=== PATIENT | female | born 1985 | race Caucasian/White ===

== ENCOUNTER 2018-08-19 13:57 | Outpatient (CLI) | payer OTHER, BC ==
[~2018-08-19] VITALS: Ht 162.6 cm; Wt 88.9 kg
--- NOTE | 2018-08-19 13:57 | NUR ---
CHRISTOPHER MOSELEY presented to unit via w/c, accompanied by son, with c/o falling @ [facility]. Pt. weighed, gowned, voided, and to bed. EFHM and TOCO applied, VS taken. Pt. oriented to bed controls, call light, TV, heat, and A/C controls.
[2018-08-19 14:00] VITALS: BP 158/93
[2018-08-19 14:10] VITALS: BP 137/69
--- NOTE | 2018-08-19 14:26 | NUR ---
was called r/t pt's admission. in room with pt at clinic. message left with office staff.
--- NOTE | 2018-08-19 15:01 | NUR ---
returned phone call. monitor x30 mins, then may dismiss to home if no ctx's.
--- NOTE | 2018-08-19 15:40 | NUR ---
dismissal instructions given, verbalizes understanding. signature page singed, placed on chart.
--- NOTE | 2018-08-19 15:45 | NUR ---
pt dismissed to private vehicle via w/c with son @ side. pt stable with no sx's of distress noted.
--- NOTE | 2018-08-21 00:03 | Physician Query-Final Dx ---
ARTI ELENA 08/21/18 0003: Clinic Account Progress/Dx Physician Query: Please give diagnosis Date of Service Aug 19, 2018 at 13:57 AMENA LYNCH MD 08/21/18 0825: Clinic Account Progress/Dx DIAGNOSIS: Diagnosis Decreased movement after Patient fell - estimated gestational age is 26 weeks ARTI ELENA Aug 21, 2018 00:03 AMENA LYNCH MD Aug 21, 2018 08:25
== END 2018-08-19 15:45 | disposition home or self-care (01) ==
LOC: WSo 13:57 → LDRP 14:28 → WSo 15:45
PROVIDERS: ATTEND Obstetrics & Gynecology
DX: O36.8120 Decreased fetal movements, second trimester, not applicable or unspecified (principal); Z3A.26 26 weeks gestation of pregnancy; W19.XXXA Unspecified fall, initial encounter
CPT/HCPCS: 99212

== ENCOUNTER → 2018-08-19 | Outpatient (CLI) | payer BC ==
[~2018-08-19] MED LIST: HYDR1TAB75 PO; IBP800T PO; PREN1TAB39 PO
--- NOTE | 2018-08-19 13:23 | Diagnostic Imaging Report ---
INDICATION: Rolled right ankle with pain and swelling. TIME OF EXAM: 12:56 p.m. FINDINGS: Three views right ankle show normal alignment. Ankle mortise is well maintained. The talar dome is smooth. No fracture or dislocation is seen. There appears to be generalized soft tissue swelling. IMPRESSION: Soft tissue swelling. No acute bony abnormality is detected. Dictated by: Dictated on workstation # [id number]
== END ==
LOC: RAD 12:41
PROVIDERS: ATTEND Nurse Practitioner Family
DX: M25.472 Effusion, left ankle (principal)
CPT/HCPCS: 73610

== ENCOUNTER 2018-09-18 20:35 | Outpatient (CLI) | payer OTHER, BC ==
[~2018-09-18] VITALS: Ht 162.6 cm; Wt 87.5 kg
--- NOTE | 2018-09-18 20:44 | NUR ---
CHRISTOPHER MOSELEY presented to unit via WHEELCHAIR from ED, accompanied by FAMILY , with c/o LOWER ABD PAIN. CHRISTOPHER MOSELEY weighed, gowned, voided, and to bed. EFHM and TOCO applied, VS taken. CHRISTOPHER MOSELEY oriented to bed controls, call light, TV, heat, and A/C controls.
[2018-09-18 20:55] VITALS: BP 159/80
[2018-09-18 20:56] LABS: BILIRUBIN,URINE NEGATIVE (NEGATIVE); CLARITY,URINE VERY CLOUDY; COLOR,URINE YELLOW; GLUCOSE, URINE (UA) NEGATIVE (NEGATIVE); KETONES,URINE 2+ (NEGATIVE); LEUKOCYTE ESTERASE ,URINE 1+ (NEGATIVE); NITRITE,URINE NEGATIVE (NEGATIVE); PH,URINE 6 (5-9); PROTEIN,URINE 1+ (NEGATIVE); UROBILINOGEN,URINE 1 MG/DL (NORMAL)
[2018-09-18 21:07] LABS: BACTERIA,URINE FEW /HPF
[2018-09-18 21:09] LABS: CALCIUM OXALATE CRYSTALS,UR MODERATE /LPF
[2018-09-18] MEDS ORDERED: D5 LR IV SOLUTION 1,000 ML IV SCH (21:15)
--- NOTE | 2018-09-18 22:08 | NUR ---
pt reports pain is gone, feeling much better. Denies any further needs at this time.
--- NOTE | 2018-09-18 23:02 | NUR ---
called with update. discharge order received.
[2018-09-18 23:15] VITALS: BP 144/68
--- NOTE | 2018-09-18 23:20 | NUR ---
Discharge instructions verbalized with pt. pt verbalized understanding. pt dc'd home with s/o at side.
== END 2018-09-18 23:20 | disposition home or self-care (01) ==
LOC: WSo 20:35 → LDRP 20:36 → WSo 23:20
PROVIDERS: ATTEND Obstetrics & Gynecology
DX: O99.89 Other specified diseases and conditions complicating pregnancy, childbirth and the puerperium (principal); R10.9 Unspecified abdominal pain; Z3A.30 30 weeks gestation of pregnancy
CPT/HCPCS: 81000; 87088; 96360; 96361; 99213

== ENCOUNTER 2018-11-18 07:00 | Inpatient (IN) | payer BC ==
[~2018-11-18] VITALS: Ht 162.6 cm; Wt 86.8 kg
[2018-11-18] VITALS (39 sets, daily range): BP systolic 118–183; BP diastolic 63–95
--- NOTE | 2018-11-18 07:03 | NUR ---
CHRISTOPHER MOSELEY presented to unit via ambulation, accompanied by , for IOL. Pt. weighed, gowned, voided, and to bed. EFHM and TOCO applied, VS taken. Pt. oriented to bed controls, call light, TV, heat, and A/C controls.
[2018-11-18] MEDS ORDERED: D5 LR IV SOLUTION 1,000 ML IV ONE (07:36)
[2018-11-18] MEDS ORDERED: OXYTOCIN/NORMAL SALINE 500 ML IV ONE (07:36)
[2018-11-18] MEDS ORDERED: AMPICILLIN FOR IV USE 2,000 MG VIAL ONE (07:40)
[2018-11-18] MEDS ORDERED: WATER (STERILE) FOR INJECTION 20 ML ONE (07:40)
[2018-11-18] MEDS ORDERED: OXYTOCIN/NORMAL SALINE 500 ML IV SCH ×2 (07:50→15:36)
[2018-11-18] MEDS: D5 LR IV SOLUTION 1,000 ML IV SCH ×2 (07:55→14:55)
--- NOTE | 2018-11-18 07:55 | NUR ---
#20g IV to Rt.wrist x1 attempt by this RN. site patent, secured with opsite. D5LR @ 150cc/hr via IV pump. admission labs collected prior to IVF's infusing.
--- NOTE | 2018-11-18 07:56 | History & Physical ---
History and Physical Date Seen by Provider: Nov 18, 2018 Time Seen by Provider: 07:54 This patient is a 33-year-old G2 to P1 white female with an EDC of 9 [phone] placing her now at 39-3/7 weeks gestation. She is admitted for elective induction of labor. Her has been uncomplicated. GBS culture done on October 26, 2018 was positive patient denies rupture membranes or bleeding. Allergies are none Medications are vitamins Medical social and surgical histories are per the antepartum record HEENT exam is normal Neck is supple no lymphadenopathy no thyromegaly Abdomen is gravid soft nontender nondistended Extremities show no clubbing or cyanosis there is no Homans sign. Pelvic exam is pending Assessment and plan term at 39+ weeks gestation admitted for elective induction of labor in a patient with AMA. Anticipation is for vaginal delivery under the protection of ampicillin for GBS prophylaxis 39 week elective induction of labor Allergies and Home Medications Allergies Coded Allergies: No Known Drug Allergies (Unverified , 11/16/09) Home Medications Vits W-Ca,Fe,Fa(<1MG) 1 Each Tablet, 1 EACH PO DAILY, (Reported) Patient Home Medication List Home Medication List Reviewed: Yes AMENA LYNCH MD Nov 18, 2018 07:56
[2018-11-18] MEDS ORDERED: OXYC1TAB87 PO (08:02)
[2018-11-18] MEDS ORDERED: DOCU-143 PO (08:02)
[2018-11-18] MEDS ORDERED: IBUP-1780 PO (08:02)
--- NOTE | 2018-11-18 08:03 | Discharge Instructions ---
Discharge Instructions Discharge Medications New, Converted or Re-Newed RX: RX on Chart Patient Instructions Return to The Hospital For: As directed Activity & Diet Discharge Diet: No Restrictions Activity as Tolerated: No Orders-Post D/C & Referrals Follow Up Appt: Call to make follow up appt. for patient in 4 weeks. Activity Per routine post vaginal delivery instructions. Please call in RX to patient pharmacy. Diet as tolerated Patient may shower or tub bathe as desired. AMENA LYNCH MD Nov 18, 2018 08:03
[2018-11-18 08:25] LABS: BASOPHILS % (AUTO) 0 % (0-10); EOSINOPHILS # (AUTO) 0.1 10^3/uL (0.0-0.3); EOSINOPHILS % (AUTO) 1 % (0-10); HEMATOCRIT 33 % (35-52); HEMOGLOBIN 11.3 G/DL (11.5-16.0); LYMPHOCYTES # (AUTO) 1.6 X 10^3 (1.0-4.0); LYMPHOCYTES % (AUTO) 21 % (12-44); MEAN CORPUSCULAR HEMOGLOBIN 30 PG (25-34); MEAN CORPUSCULAR HGB CONC 35 G/DL (32-36); MEAN CORPUSCULAR VOLUME 88 FL (80-99); MEAN PLATELET VOLUME 10.4 FL (7.4-10.4); MONOCYTES # (AUTO) 0.8 X 10^3 (0.0-1.0); MONOCYTES % (AUTO) 11 % (0-12); NEUTROPHILS # (AUTO) 4.9 X 10^3 (1.8-7.8); NEUTROPHILS % (AUTO) 66 % (42-75); PLATELET COUNT 200 10^3/uL (130-400); RED CELL DISTRIBUTION WIDTH 13.6 % (10.0-14.5); WHITE BLOOD COUNT 7.4 10^3/uL (4.3-11.0)
--- NOTE | 2018-11-18 09:01 | NUR ---
ORION Da Silva here for epidural placement. Procedure explained, consent reviewed and signed by anesthesia. Questions answered to patient's satisfaction. Time out taken to verify correct patient/procedure. 0940- Patient up to side of bed, assisted into sitting position. Betadine prep done x3 and sterile drape applied. 0947-Local done, see anesthesia record. Test dose given, see anesthesia record for drug and dosage. Epidural catheter secured in place. Epidural placement complete. 0956-Assisted back into bed, monitors adjusted. Epidural dosed, see anesthesia record. Epidural of Sufenta/Bupvicaine @12cc/hr stated per pump. Patient tolerated procedure well.
[2018-11-18] MEDS ORDERED: SUFENTA 0.6MCG/ML BUPIVA 0.125 100 ML ONE (09:32)
[2018-11-18] MEDS ORDERED: LIDOCAINE PF 2% 5 ML (XYLOCAINE) VIAL ONE (09:39)
[2018-11-18] MEDS ORDERED: BUPIVACAINE 0.25% 30 ML (SENSORCAINE) VIAL ONE (09:39)
[2018-11-18] MEDS ORDERED: fentaNYL INJECTION 100 MCG/2 ML AMP ONE (09:40)
[2018-11-18] MEDS ORDERED: LACTATED RINGERS 1,000 ML IV ONE ×2 (10:11)
[2018-11-18] MEDS ORDERED: EPIDURAL (SUFENTA 0.6MCG/ML BUPIVA 0.125%) 100 ML BAG EPI PRN (10:15)
[2018-11-18] MEDS ORDERED: NALOXONE 0.4 MG/ML 1 ML (NARCAN) VIAL IV PRN (10:15)
[2018-11-18] MEDS ORDERED: ONDANSETRON 4 MG/2 ML (SDV) Z0FRAN IV PRN (10:15)
[2018-11-18] MEDS ORDERED: WATER (STERILE) FOR INJECTION 10 ML ONE (12:15)
[2018-11-18] MEDS ORDERED: AMPICILLIN FOR IV USE 1,000 MG/VIAL ONE (12:15)
[2018-11-18] MEDS ORDERED: LIDOCAINE/EPI 2% 1:200,00 (XYLOCAINE) 10 ML VIAL ONE (14:48)
[2018-11-18] MEDS ORDERED: oxyCODONE/APAP 5/325MG (PERCOCET 5) TABLET PO PRN (15:45)
[2018-11-18] MEDS ORDERED: TETANUS,DIPTH,PERTUSS P/F (BOOSTRIX) 0.5 ML VIAL IM ONE (15:45)
[2018-11-18] MEDS ORDERED: KETOROLAC 30 MG/ML VIAL IVP PRN (15:45)
[2018-11-18] MEDS ORDERED: BENZOCAINE/MENTHOL (DERMOPLAST) 56 ML CAN TP PRN (15:45)
[2018-11-18] MEDS ORDERED: MEASLES,MUMPS,RUBELLA 1 EA INJ SC ONE (15:45)
[2018-11-18] MEDS ORDERED: ONDANSETRON 4 MG/2 ML (SDV) Z0FRAN IVP PRN (15:45)
[2018-11-18] MEDS ORDERED: KETOROLAC 30 MG/ML VIAL ONE (16:35)
--- NOTE | 2018-11-18 16:41 | NUR ---
Scheduled Toradol 30mg IV given. see eMar for further. FFu/0. lt rubra noted. no clots expressed. see-care offered. v-pad and mesh panties applied.
--- NOTE | 2018-11-18 16:45 | NUR ---
pt transferred to room 309 via w/c with family @ side. pt stable. no sx's distress noted. familiarized with room. call light within reach.
[2018-11-18] MEDS: DOCUSATE SODIUM 100 MG (COLACE) CAP PO SCH (21:53)
[2018-11-18] MEDS ORDERED: KETOROLAC 30 MG/ML VIAL IVP SCH (22:30)
[2018-11-19 00:05] VITALS: BP 133/66
[2018-11-19] MEDS ORDERED: IBUPROFEN 800 MG (MOTRIN) TAB PO ONE ×2 (03:58→09:23)
[2018-11-19 04:03] VITALS: BP 125/83
[2018-11-19] MEDS: IBUPROFEN 800 MG (MOTRIN) TAB PO SCH ×3 (04:03→16:00)
--- NOTE | 2018-11-19 04:25 | OPERATIVE REPORT ---
DATE OF SERVICE: 11/18/2018 DELIVERY NOTE The patient delivered by term spontaneous vaginal delivery a viable female infant with Apgars of 9 and 9 at 1 and 5 minutes respectively, weight 7 pounds 3 ounces. time of 1458 hours. Cord blood pH of 7.31. The infant was delivered over a midline episiotomy that was performed at the patient's request when she could not expel the fetus through the perineum. The midline episiotomy was performed and then the patient delivered promptly a viable female with stats as noted above. The was bulb suctioned on delivery of the head and again on completion of delivery. The umbilical cord was doubly clamped, father cut the cord, and the baby was passed to mom's abdomen. Cord bloods were obtained. Placenta delivered spontaneously Chung. It was normal with a 3-vessel cord. The patient had been on antibiotics throughout the labor due to GBS positive culture. Her placenta was sent to pathology for permanent section. The cervix, rectum, vagina, and perineum were examined and found intact, except for the midline episiotomy that was performed in the usual manner without difficulty to good hemostasis and good reapproximation with a single suture of 3-0 Vicryl Rapide. The patient tolerated the delivery and the repair well and remained in the LDR for recovery. The baby remained with the mom. Job ID: [id number] DocumentID: [id number] Dictated Date: 11/18/2018 16:46:10 Electric Bath Attendant Date: 11/19/2018 00:41:55 Dictated By: AMENA LYNCH MD MTDD
--- NOTE | 2018-11-19 07:40 | NUR ---
here. dismissal orders received.
--- NOTE | 2018-11-19 07:48 | Progress Note ---
Standard Progress Note Progress Notes/Assess & Plan Date Seen by a Provider: Nov 19, 2018 Time Seen by a Provider: 07:47 Progress/Assessment & Plan This patient is without complaint. She is ambulating, voiding, tolerating oral intake well has good pain control. Patient is requesting discharge home. Vital Signs 11/19/18 04:03 Temp 37.2 Pulse 82 Resp 18 B/P (MAP) 125/83 (97) Pulse Ox 98 O2 Delivery Room Air Vital signs are stable. Patient is afebrile. Fundus is firm below the umbilicus and nontender. Extremities show no clubbing or cyanosis. There is no Homans sign. Assessment and plan postop/ day number 1 doing well. Plan for routine convalescence care with discharge home IF patient desires Final Diagnosis 39 week spontaneous vaginal delivery AMENA LYNCH MD Nov 19, 2018 07:48
[2018-11-19] MEDS: DOCUSATE SODIUM 100 MG (COLACE) CAP PO SCH (09:39)
[2018-11-19 09:40] VITALS: BP 127/68
--- NOTE | 2018-11-19 09:40 | NUR ---
initial shift assessment completed, see interventions for further. POC reviewed, states understanding.
--- NOTE | 2018-11-19 10:11 | Anesthesia-Regional Post-Op ---
Regional Patient Condition Mental Status: Alert, Oriented x3 Circulation: Same as Pre-Op Headache: Absent Sensation: Full Recovery Motor Block: Absent Post Op Complications Complications None Follow Up Care/Instructions Patient Instructions None needed. Anesthesia/Patient Condition Patient is doing well, no complaints, stable vital signs, no apparent adverse anesthesia problems. No complications reported per nursing. RON SALGADO CRNA Nov 19, 2018 10:11
[2018-11-19 12:00] VITALS: BP 138/82
--- NOTE | 2018-11-19 14:35 | NUR ---
dismissal instructions given, verbalizes understanding. reviewed follow up appointment & Rx's. signature page singed, placed on chart.
--- NOTE | 2018-11-19 14:55 | NUR ---
Colace and Motrin Rx's called into [facility] per pt's request.
--- NOTE | 2018-11-19 17:35 | NUR ---
pt ambulated to private vehicle with this RN, and @ side. secured in rear facing car seat. pt stable with no sx's of distress noted.
== END 2018-11-19 17:35 | disposition home or self-care (01) | DRG 807 ==
LOC: LDRP 07:15
PROVIDERS: ADMIT Obstetrics & Gynecology; ATTEND Obstetrics & Gynecology
PROC: 10E0XZZ Delivery of Products of Conception, External Approach (ICD-10-PCS; principal; 2018-11-18)
PROC: 0W8NXZZ Division of Female Perineum, External Approach (ICD-10-PCS; 2018-11-18)
PROC: 3E033VJ Introduction of Other Hormone into Peripheral Vein, Percutaneous Approach (ICD-10-PCS; 2018-11-18)
DX: O99.824 Streptococcus B carrier state complicating childbirth (principal); Z3A.39 39 weeks gestation of pregnancy; Z37.0 Single live birth
CPT/HCPCS: 36415; 85025